=== PATIENT | female | born 1975 | race Caucasian/White ===

== ENCOUNTER → 2017-08-18 | Outpatient (CLI) | payer BC, OTHER | LOC: RAD 02:10 | DX: Z12.31 Encounter for screening mammogram for malignant neoplasm of breast (principal) ==

== ENCOUNTER → 2018-09-28 | Outpatient (CLI) | payer BC | LOC: RAD 03:50 | DX: Z12.31 Encounter for screening mammogram for malignant neoplasm of breast (principal) ==

== ENCOUNTER → 2018-10-31 | Outpatient (CLI) | payer BC | LOC: RAD 02:56 | DX: N63.20 Unspecified lump in the left breast, unspecified quadrant (principal) ==